=== PATIENT | female | born 1995 | race Caucasian/White ===

== ENCOUNTER 2017-07-31 22:00 | Emergency (ER) | payer MEDICAID ==
[~2017-07-31] VITALS: Ht 170.2 cm; Wt 68.0 kg
[2017-07-31] MEDS ORDERED: KETOROLAC 30MG/ML VIAL IM ONE (23:00)
[2017-08-01 00:23] VITALS: BP 120/69
== END 2017-08-01 00:30 | disposition left against medical advice (07) ==
LOC: ER 22:00
DX: R07.9 Chest pain, unspecified (principal); Q21.3 Tetralogy of Fallot
CPT/HCPCS: 71010; 93005; 99284

== ENCOUNTER 2018-12-17 18:11 | Emergency (ER) | payer MEDICAID ==
[~2018-12-17] VITALS: Ht 170.2 cm; Wt 57.0 kg
[2018-12-17] MEDS ORDERED: SODIUM CHLORIDE 0.9% 1,000 ML IV ONE (18:35)
[2018-12-17 19:40] LABS: BASOPHILS % 0.6 % (0.0-2.0); HEMATOCRIT. 43.1 % (36.0-48.0); HEMOGLOBIN. 14.5 g/dL (12.0-16.0); LYMPHOCYTES % 23.9 % (20.0-50.0); MEAN CORPUSCULAR HEMOGLOBIN 31.3 pg (28.0-32.0); MEAN PLATELET VOLUME 8.2 fl (7.4-10.4); MONOCYTES % 3.6 % (2.0-8.0); NEUTROPHILS % 70.9 % (40.0-76.0); PLATELET 229 x1000/uL (130-400); RED BLOOD CELL COUNT 4.63 mill/uL (4.2-5.4); RED CELL DISTRIBUTION WIDTH 13.8 % (11.6-14.6)
[2018-12-17 19:45] LABS: CHLORIDE 107 mEq/L (98-107)
[2018-12-17 19:49] LABS: PROTHROMBIN TIME 10.6 sec (9.6-11.0)
[2018-12-17 23:31] VITALS: BP 121/79
== END 2018-12-17 23:35 | disposition left against medical advice (07) ==
LOC: ER 18:11 → EDBEDREQ 21:21 → EDBEDREQTM 21:21 → ENRESERV 22:16 → CANRESERV 22:16 → CANBEDREQ 23:33 → ER 23:35
DX: Q21.3 Tetralogy of Fallot (principal); R07.9 Chest pain, unspecified; R00.2 Palpitations; I51.9 Heart disease, unspecified; I49.9 Cardiac arrhythmia, unspecified; I25.10 Atherosclerotic heart disease of native coronary artery without angina pectoris
CPT/HCPCS: 36415; 71045; 80053; 81025; 83605; 83880; 84484; 85025; 85610; 93005; 99284; J7030

== ENCOUNTER 2019-05-13 23:09 | Emergency (ER) | payer MEDICAID ==
[~2019-05-13] VITALS: Ht 170.2 cm; Wt 57.0 kg
[2019-05-14] MEDS ORDERED: ASPIRIN 81MG TABLET PO ONE (01:15)
[2019-05-14 01:30] LABS: BASOPHILS % 0.8 % (0.0-2.0); EOSINOPHILS % 2.5 % (0.0-5.0); HEMOGLOBIN. 13.5 g/dL (12.0-16.0); MEAN CORPUSCULAR HEMOGLOBIN 30.8 pg (28.0-32.0); MEAN CORPUSCULAR VOLUME 91.3 fL (81.0-99.0); MEAN PLATELET VOLUME 7.8 fl (7.4-10.4); MONOCYTES % 5.8 % (2.0-8.0); NEUTROPHILS % 57.9 % (40.0-76.0); PLATELET 221 x1000/uL (130-400); RED BLOOD CELL COUNT 4.38 mill/uL (4.2-5.4); RED CELL DISTRIBUTION WIDTH 13.7 % (11.6-14.6)
[2019-05-14 01:33] LABS: CHLORIDE 107 mEq/L (98-107)
[2019-05-14 03:35] LABS: *AMPHETAMINES SCREEN URINE NEGATIVE (NEGATIVE); *BARBITURATES SCREEN URINE NEGATIVE (NEGATIVE); *BENZODIAZEPINES SCREEN URINE NEGATIVE (NEGATIVE); *COCAINE SCREEN URINE NEGATIVE (NEGATIVE); METHADONE URINE SCREEN NEGATIVE (NEGATIVE); OPIATES URINE SCREEN NEGATIVE (NEGATIVE)
[2019-05-14 03:36] LABS: CANNABINOID URINE SCREEN NEGATIVE (NEGATIVE); PHENCYCLIDINE URINE SCREEN NEGATIVE (NEGATIVE)
[2019-05-14 05:00] VITALS: BP 138/78
== END 2019-05-14 05:00 | disposition home or self-care (01) ==
LOC: ER 23:09
DX: R07.89 Other chest pain (principal); I25.10 Atherosclerotic heart disease of native coronary artery without angina pectoris; I51.9 Heart disease, unspecified
CPT/HCPCS: 36415; 71045; 80053; 80305; 81025; 83880; 84484; 85025; 93005; 99284; Z7610

== ENCOUNTER 2019-07-02 16:26 | Emergency (ER) | payer MEDICAID ==
[~2019-07-02] VITALS: Ht 170.2 cm; Wt 57.0 kg
[2019-07-02] MEDS ORDERED: ONDANSETRON HCL 4MG/2ML INJ IV ONE (18:30)
[2019-07-02 19:09] LABS: BASOPHILS % 0.6 % (0.0-2.0); EOSINOPHILS % 1.3 % (0.0-5.0); HEMATOCRIT. 43.3 % (36.0-48.0); HEMOGLOBIN. 14.5 g/dL (12.0-16.0); LYMPHOCYTES % 18.8 % (20.0-50.0); MEAN CORPUSCULAR HEMOGLOBIN 30.5 pg (28.0-32.0); MEAN CORPUSCULAR VOLUME 90.9 fL (81.0-99.0); MEAN PLATELET VOLUME 8.3 fl (7.4-10.4); NEUTROPHILS % 75.3 % (40.0-76.0); PLATELET 236 x1000/uL (130-400); RED BLOOD CELL COUNT 4.77 mill/uL (4.2-5.4); RED CELL DISTRIBUTION WIDTH 13.7 % (11.6-14.6)
[2019-07-02 19:28] LABS: CHLORIDE 107 mEq/L (98-107)
[2019-07-02 19:43] VITALS: BP 115/79
[2019-07-02] MEDS ORDERED: KETOROLAC 30MG/ML VIAL IV NR (20:45)
[2019-07-02] MEDS ORDERED: HYDROCODONE/ACETAMINOPHEN 5/325MG TABLET PO NR (20:45)
== END 2019-07-02 21:22 | disposition home or self-care (01) ==
LOC: ER 16:26
DX: R07.89 Other chest pain (principal); K08.89 Other specified disorders of teeth and supporting structures; I25.10 Atherosclerotic heart disease of native coronary artery without angina pectoris
CPT/HCPCS: 36415; 71045; 80053; 81025; 83880; 84484; 85025; 93005; 96374; 99284; J2405

== ENCOUNTER 2020-03-09 19:18 | Emergency (ER) | payer MEDICAID ==
[2020-03-09] MEDS ORDERED: ACETAMINOPHEN 325MG TABLET PO STA (19:23)
== END 2020-03-09 19:35 | disposition left against medical advice (07) ==
LOC: ER 19:18
DX: R07.89 Other chest pain (principal); R10.9 Unspecified abdominal pain; R00.2 Palpitations; R06.02 Shortness of breath; I25.10 Atherosclerotic heart disease of native coronary artery without angina pectoris; Z98.890 Other specified postprocedural states
CPT/HCPCS: 99281

== ENCOUNTER 2020-07-21 16:17 | Emergency (ER) | payer MEDICAID ==
[~2020-07-21] VITALS: Ht 167.6 cm; Wt 60.0 kg
[2020-07-21 20:27] VITALS: BP 114/72
== END 2020-07-21 21:05 | disposition home or self-care (01) ==
LOC: ER 16:17
DX: O26.891 Other specified pregnancy related conditions, first trimester (principal); S20.219A Contusion of unspecified front wall of thorax, initial encounter; I45.10 Unspecified right bundle-branch block; R00.0 Tachycardia, unspecified; I25.10 Atherosclerotic heart disease of native coronary artery without angina pectoris; Z3A.10 10 weeks gestation of pregnancy; Z98.890 Other specified postprocedural states; V43.52XA Car driver injured in collision with other type car in traffic accident, initial encounter; Y93.89 Activity, other specified; Y92.488 Other paved roadways as the place of occurrence of the external cause
CPT/HCPCS: 76801; 93005; 99284

== ENCOUNTER → 2025-02-03 | Emergency (ER) | payer MEDICAID, OTHER ==
[2020-07-21 20:27] VITALS: BP 114/72; PULSE 80; RESP 16; TEMP 99; O2SAT 100
== END ==
LOC: ER 16:59
DX: R10.9 Unspecified abdominal pain (principal); Z53.21 Procedure and treatment not carried out due to patient leaving prior to being seen by health care provider